=== PATIENT | male | born 1970 | race Caucasian/White ===

== ENCOUNTER 2018-11-14 06:17 | Emergency (ER) | payer MEDICAID ==
[~2018-11-14] VITALS: Ht 172.7 cm; Wt 97.0 kg
[2018-11-14 06:29] VITALS: BP 125/83; PULSE 60; RESP 18; Ht 172.7 cm; Wt 97.0 kg
--- NOTE | 2018-11-14 07:46 | ERD ---
ER Documentation Chief Complaint Chief Complaint abdominal pain w/diarrhea x4 wks HPI 48 year old male presenting to ED for abdominal pain, dysuria and diarrhea x 4 weeks. Patient was seen in UC few weeks ago and discharged with anti diarrhea medication with no relief. Patient denies fever, chills, or back pain and states he is still having 9-10 episodes a day. patient has PMH of gallstones and fatty liver. Patient states he had similar episode about 5 years ago that resolved on its own. Patient denies any recent travels out of the country and cannot pinpoint any source that triggered the episodes. Patient is a moderate drinker and denies tobacco use. Patient denies any surgical history. ROS All systems reviewed and are negative except as per history of present illness. Medications Home Meds Active Scripts Loperamide Hcl* (Imodium*) 2 Mg Capsule, 2 MG PO .AFTER EA LOOSE BM PRN for DIARRHEA, #10 TAB Prov:BRIAN TARIQ PA-C 11/14/18 Metronidazole* (Flagyl*) 500 Mg Tablet, 500 MG PO TID for 7 Days, TAB Prov:BRIAN TARIQ PA-C 11/14/18 Ciprofloxacin Hcl* (Ciprofloxacin Hcl*) 500 Mg Tablet, 500 MG PO BID for 7 Days, TAB Prov:BRIAN TARIQ PA-C 11/14/18 Allergies Allergies: Coded Allergies: No Known Allergy (Unverified , 09/03/14) PMhx/Soc Medical and Surgical Hx: pt denies Surgical Hx Hx Alcohol Use: No Hx Substance Use: No Hx Tobacco Use: No FmHx Family History: No diabetes, No coronary disease, No other Physical Exam Vitals Vital Signs Date Temp Pulse Resp B/P (MAP) Pulse Ox O2 O2 Flow FiO2 Time Delivery Rate 11/14/18 97.0 60 18 125/83 98 06:29 (97) Physical Exam Const: No acute distress Resp: Clear to auscultation bilaterally Cardio: Regular rate and rhythm, no murmurs Abd: mild tenderness in RUQ, no signs of ecchymosis or fluid shift. Patient has increased bowel motility on auscultation. Skin: No petechiae or rashes Back: No CVA Result Diagram: 11/14/18 0747 11/14/18 0747 Results 24 hrs Laboratory Tests Test 11/14/18 07:47 White Blood Count 6.4 10^3/ul Red Blood Count 5.19 10^6/ul Hemoglobin 15.4 g/dl Hematocrit 45.4 % Mean Corpuscular Volume 87.5 fl Mean Corpuscular Hemoglobin 29.7 pg Mean Corpuscular Hemoglobin Concent 33.9 g/dl Red Cell Distribution Width 12.4 % Platelet Count 248 10^3/UL Mean Platelet Volume 9.8 fl Immature Granulocytes % 0.200 % Neutrophils % 53.8 % Lymphocytes % 32.9 % Monocytes % 8.7 % Eosinophils % 3.6 % Basophils % 0.8 % Nucleated Red Blood Cells % 0.0 /100WBC Immature Granulocytes # 0.010 10^3/ul Neutrophils # 3.5 10^3/ul Lymphocytes # 2.1 10^3/ul Monocytes # 0.6 10^3/ul Eosinophils # 0.2 10^3/ul Basophils # 0.1 10^3/ul Nucleated Red Blood Cells # 0.0 10^3/ul Urine Color YELLOW Urine Clarity CLEAR Urine pH 8.0 Urine Specific [place] 1.021 Urine Ketones TRACE mg/dL Urine Nitrite NEGATIVE mg/dL Urine Bilirubin NEGATIVE mg/dL Urine Urobilinogen NEGATIVE mg/dL Urine Leukocyte Esterase NEGATIVE Carolyn/ul Urine Hemoglobin NEGATIVE mg/dL Urine Glucose NEGATIVE mg/dL Urine Total Protein NEGATIVE mg/dl Sodium Level 144 mmol/L Potassium Level 4.8 mmol/L Chloride Level 105 mmol/L Carbon Dioxide Level 31 mmol/L Anion Gap 8 Blood Urea Nitrogen 11 mg/dl Creatinine 0.78 mg/dl Est Glomerular Filtrat Rate mL/min > 60 mL/min Glucose Level 122 mg/dl Calcium Level 9.1 mg/dl Total Bilirubin 0.8 mg/dl Direct Bilirubin 0.00 mg/dl Indirect Bilirubin 0.8 mg/dl Aspartate Amino Transf (AST/SGOT) 76 IU/L Alanine Aminotransferase (ALT/SGPT) 131 IU/L Alkaline Phosphatase 91 IU/L Total Protein 8.3 g/dl Albumin 4.5 g/dl Globulin 3.80 g/dl Albumin/Globulin Ratio 1.18 Lipase 117 U/L Procedures/MDM PROCEDURE: CT Abdomen and Pelvis without contrast. CLINICAL INDICATION: Abdominal pelvic pain. Distension. TECHNIQUE: CT scan of the abdomen and pelvis without contrast was performed on a multi-detector high-resolution CT scanner. The patient was scanned without IV contrast. Coronal and sagittal reformatted images were obtained from the axial source images. DICOM images are available. CTDI equals 19.47 mGy, and DLP equals 1097.31 mGy-cm. One or more of the following dose reduction techniques were used: - Automated exposure control. - Adjustment of the mA and/or kV according to patient size. - Use of iterative reconstruction technique. COMPARISON: Chest x-ray 09/04/2014 FINDINGS: Lower thorax: Normal. Liver: Diffusely fatty infiltrated. No focal mass. Biliary: Distended gallbladder with layering gallstone. No biliary dilatation. Pancreas: Normal. Spleen: Normal. Adrenal Glands: Normal. Genitourinary: Normal. Gastrointestinal: Normal, with normal appendix. Lymph nodes: Normal. Vascular: Normal. Peritoneum/mesentery: Small midline fat containing ventral periumbilical hernia. Reproductive organs: Upper normal size prostate gland. Musculoskeletal: Degenerative spinal enthesopathy. IMPRESSION: 1. Fatty infiltration of the liver. 2. Cholelithiasis, without acute cholecystitis. 3. Normal appendix. 4. No focal acute inflammatory process. 5. Small midline ventral fat-containing periumbilical hernia. ER Course: Patient arrived in the ER with chief complaint of abdominal pain and diarrhea for 4 weeks. Patient was sent for CT and line and labs were drawn. Patient was discharged with prescription for Imodium, Flagyl, and ciprofloxacin. MDM; 48-year-old male presented with abdominal pain and diarrhea for [address] was unremarkable. Low suspicion of cholecystitis, appendicitis, abscess, sepsis, kidney infection. Patients labs were unremarkable for any signs of electrolyte imbalance, anemia Patient's vital signs were within normal limits. I have low suspicion for dehydration, cholecystitis, appendicitis. abscess, sepsis, UTI or kidney infection. Patient will be treated prophylactically for infectious diarrhea ciprofloxacin. Patient was advised to follow-up with his provider at the community clinic within 1 to 2 days. Patient had no questions or concerns upon discharge Departure Diagnosis: Primary Impression: Abdominal pain Abdominal location: right upper quadrant Qualified Codes: R10.11 - Right upper quadrant pain Additional Impression: Diarrhea Diarrhea type: unspecified type Qualified Codes: R19.7 - Diarrhea, unspecified Condition: Stable Referrals: [facility] Additional Instructions: Reviewed patient's labs and imaging and discussed findings with patient. Patient was advised to follow-up with his primary care provider within 1 to 2 days. Patient was sent home with antibiotics and antidiarrheal medication. Discussed with patient possible side effect of antibiotics is diarrhea. Patient was informed to continue and complete full course of antibiotics and keep hydrated with water and Pedialyte. Patient was advised if symptoms worsen to return to the emergency department or contact his primary care provider. Geeta quiroga had no further questions upon discharge and was sent home with his lab results and instructions. BRIAN TARIQ PA-C November 14, 2018 07:46
[2018-11-14] MEDS ORDERED: CIPR500T4 PO (08:41)
[2018-11-14] MEDS ORDERED: METR500T PO (08:41)
[2018-11-14] MEDS ORDERED: LOPE2CAP PO (08:41)
== END 2018-11-14 08:54 | disposition home or self-care (01) ==
LOC: FTE 06:17
DX: R10.11 Right upper quadrant pain (principal)
CPT/HCPCS: 36415; 74176; 80053; 81003; 83690; 85025; Z7502